=== PATIENT | male | born 1985 | race American Indian/Alaskan Native ===

== ENCOUNTER 2018-11-06 11:48 | Emergency (ER) | payer MEDICAID, OTHER ==
[2018-11-06 11:53] VITALS: RESP 18
[2018-11-06 14:25] LABS: URINE BACTERIA RARE (<OCC); URINE BILIRUBIN NEGATIVE (NEGATIVE); URINE BLOOD NEGATIVE (NEGATIVE); URINE CLARITY CLEAR (Clear); URINE COLOR YELLOW (YELLOW); URINE GLUCOSE (UA) NEG (NEGATIVE); URINE LEUKOCYTE ESTERASE NEG Leu/uL (Negative); URINE PROTEIN NEGATIVE (NEGATIVE); URINE UROBILINOGEN 0.2-1.0 mg/dL (0.2-1.0)
--- NOTE | 2018-11-06 15:08 | ED PDOC ---
HPI: Male Pain Time Seen by Provider: 11/06/18 12:19 Chief Complaint (Nursing): Male Genitourinary Chief Complaint (Provider): Kevinbessy History Per: Patient History/Exam Limitations: no limitations Onset/Duration Of Symptoms: Days (two) Current Symptoms Are (Timing): Still Present Severity: Mild Quality Of Discomfort: Burning Associated Symptoms: Urinary Symptoms (Pt presetns to the ED complaiing of dysuria and urinary symptoms for two days; he has a mild apparent fungal rash on the glans; he is circumscised. Pt indicates discomfort for 2-3 days and acknowledges no sexual contact without a known partner) Past Medical History Reviewed: Historical Data, Nursing Documentation, Vital Signs Vital Signs: Last Vital Signs Temp 98.3 F 11/06/18 11:52 Pulse 88 11/06/18 11:52 Resp 18 11/06/18 11:52 BP 144/76 11/06/18 11:52 Pulse Ox 98 11/06/18 11:52 - Medical History PMH: Asthma Denies: Chronic Kidney Disease - Family History Family History: States: Unknown Family Hx - Immunization History Hx Tetanus Toxoid Vaccination: Yes Hx Influenza Vaccination: Yes Hx Pneumococcal Vaccination: Yes - Home Medications Home Medications: Ambulatory Orders Medication Instructions Recorded Clotrimazole 1% Cream [Lotrimin 1% 1 applic EXT BID #1 tube 11/06/18 CREAM] - Allergies Allergies/Adverse Reactions: Allergies Allergy/AdvReac Type Severity Reaction Status Date / Time No Known Allergies Allergy Verified 06/22/15 18:17 Review of Systems ROS Statement: Except As Marked, All Systems Reviewed And Found Negative Genitourinary Male: Positive for: Dysuria, Penile Pain. Negative for: Penile Discharge Physical Exam - Reviewed Nursing Documentation Reviewed: Yes Vital Signs Reviewed: Yes - Physical Exam Appears: Positive for: Well, Non-toxic, No Acute Distress. Negative for: Uncomfortable Head Exam: Positive for: ATRAUMATIC, NORMAL INSPECTION Skin: Positive for: Normal Color, Warm, Dry. Negative for: Diaphoresis, Pallor, Rash Cardiovascular/Chest: Positive for: Regular Rate, Rhythm Respiratory: Positive for: Normal Breath Sounds Pulses-Carotid (L): 2+ Pulses-Carotid (R): 2+ Pulses-Radial (L): 2+ Pulses-Radial (R): 2+ Male Genital Exam: Positive for: erythema. Negative for: normal genitalia (mild discoloration to the glans noted), bleeding, epididymal tenderness, inguinal tenderness, lesions, scrotum tenderness (R), scrotum tenderness (L), testicular tenderness (R), testicular tenderness (L), urethral discharge Back: Positive for: Normal Inspection. Negative for: L CVA Tenderness, R CVA Tenderness - Laboratory Results Lab Results: Urine Color Yellow (YELLOW) 11/06/18 13:30 Urine Clarity Clear (Clear) 11/06/18 13:30 Urine pH 6.0 (5.0-8.0) 11/06/18 13:30 Ur Specific [place] 1.025 (1.003-1.030) 11/06/18 13:30 Urine Protein Negative mg/dL (NEGATIVE) 11/06/18 13:30 Urine Glucose (UA) Neg mg/dL (NEGATIVE) 11/06/18 13:30 Urine Ketones Negative mg/dL (NEGATIVE) 11/06/18 13:30 Urine Blood Negative (NEGATIVE) 11/06/18 13:30 Urine Nitrate Negative (NEGATIVE) 11/06/18 13:30 Urine Bilirubin Negative (NEGATIVE) 11/06/18 13:30 Urine Urobilinogen 0.2-1.0 mg/dL (0.2-1.0) 11/06/18 13:30 Ur Leukocyte Esterase Neg Ruiz/uL (Negative) 11/06/18 13:30 Urine RBC (Auto) 3 /hpf (0-3) 11/06/18 13:30 Urine Microscopic WBC 1 /hpf (0-5) 11/06/18 13:30 Urine Bacteria Rare (<OCC) 11/06/18 13:30 - ECG O2 Sat by Pulse Oximetry: 98 Medical Decision Making Medical Decision Making: RPR GC test pending UA (-) will treat in ED with ceftriaxone and azith prophyactically advise to phone for results rx: lotrimin Disposition - Clinical Impression Clinical Impression: Candidal balanitis - Patient ED Disposition Is Patient to be Admitted: No Doctor Will See Patient In The: Office Counseled Patient/Family Regarding: Diagnosis, Need For Followup, Rx Given - Disposition Referrals: [facility] [Outside] Disposition: Routine/Home Disposition Time: 15:11 Condition: STABLE Prescriptions: Clotrimazole 1% Cream [Lotrimin 1% CREAM] 1 applic EXT BID #1 tube Instructions: Marleny Farmer (NAM), Marleny Forms: [employer] (Greek)
[2018-11-06] MEDS ORDERED: cefTRIAXone (Rocephin) 250 mg Inj IM ONE (15:17)
[2018-11-06] MEDS ORDERED: cefTRIAXone (Rocephin) 250 mg Inj ONE (15:33)
[2018-11-06 15:34] VITALS: BP 128/67; PULSE 81; TEMP 98.4; O2SAT 99
[2018-11-06] MEDS ORDERED: Sterile Water 10 ML IV ONE (15:37)
== END 2018-11-06 15:33 | disposition home or self-care (01) ==
LOC: H.ER 11:48
DX: B37.42 Candidal balanitis (principal)
CPT/HCPCS: 81003; 86592; 87086; 87491; 87591; 96372; 99283; J0696